=== PATIENT | male | born 1995 | race Caucasian/White ===

== ENCOUNTER 2017-04-26 22:08 | Emergency (ER) | payer OTHER ==
[~2017-04-26] VITALS: Ht 162.6 cm; Wt 59.0 kg
[2017-04-26 22:36] VITALS: BP 118/73
[2017-04-27] MEDS ORDERED: IBUPROFEN600 MG ORAL (01:04)
[2017-04-27 01:14] VITALS: BP 137/52
[2017-04-27 01:20] VITALS: BP 137/52
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
--- NOTE | 2017-04-27 10:43 | Diagnostic Imaging Report ---
Indication: Pain 3 views of the left knee were obtained. Findings: No acute fracture, malalignment, or joint effusion are identified. Joint space is relatively well-maintained. 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 Impression: Negative for acute injury
== END 2017-04-27 01:20 | disposition home or self-care (01) ==
LOC: EMR 22:35
DX: S80.02XA Contusion of left knee, initial encounter (principal); V09.9XXA Pedestrian injured in unspecified transport accident, initial encounter; Y92.410 Unspecified street and highway as the place of occurrence of the external cause
CPT/HCPCS: 99283